=== PATIENT | male | born 1955 | race Caucasian/White ===

== ENCOUNTER → 2018-07-22 | Outpatient (CLI) | payer BC ==
[~2018-07-22] MED LIST: ATOR20TA PO; GADOBUTROL 10 MMOL/10 ML VIAL IV ONE; INTE30SY IM; LISI-334 PO
--- NOTE | 2018-07-22 10:38 | KCIC ---
MRI Brain with and without contrast History: Multiple sclerosis, bilateral extremity numbness and burning sensation, skin numbness Technique: Multiplanar, multi sequential pre and postcontrast MR imaging was performed of the brain. Comparison: None Findings: There is no evidence of recent infarct or cytotoxic edema. Ventricular size is within normal limits. There is mild fairly generalized supratentorial atrophy.There is no significant midline shift, intraaxial mass effect, or focal abnormal extra-axial fluid collection. There is overall minimal T2 and FLAIR hyperintense signal abnormality of the supratentorial periventricular white matter bilaterally with some foci which have a perpendicular orientation relative to the lateral ventricles. There are also some scattered foci in the deep white matter, which are mostly unchanged other than a new focus of the right parasagittal frontal deep and subcortical white matter about 0.7 cm in size image 21 series 7. Foci are not associated with enhancement. There is small focus of more focal volume loss of the right parietal lobe which may be site of previous biopsy. There is also small focus of volume loss and gliosis of the right basal ganglia to involve caudate head, likely sequela of old lacunar infarct. There is preservation of the major intracranial flow-voids at the skull base. The cerebellar tonsils are normal in location. There is no significant abnormality of the pineal gland or pituitary gland. There is focus of signal abnormality of the anterior left maxillary sinus about 1.7 cm which may be complex mucous retention cyst or polyp. There is patchy [id number] left and mild right ethmoid air cell mucosal thickening, also mild circumferential left frontal sinus mucosal thickening. There is also very minimal right maxillary sinus mucosal thickening. There is mild patchy fluid of the left mastoid air cells. There is nonspecific heterogeneity of the marrow of the nonexpanded clivus. Impression: 1. There is scattered overall mild T2 and FLAIR hyperintense abnormality of the supratentorial parenchyma bilaterally which may be seen with provided history of multiple sclerosis, no abnormal intracranial enhancement. There is a new focus of nonenhancing signal abnormality of the right parasagittal frontal white matter. 2. There is mild generalized supratentorial atrophy. 3. There is paranasal sinus mucosal thickening as stated greatest of the left ethmoid air cells. There is complex mucous retention cyst or polyp of the anterior left maxillary sinus. Electronically signed by: Preston Short MD (07/22/2018 10:35 AM) [id number]
== END | disposition home or self-care (01) ==
LOC: KCIC MRI 08:48
PROVIDERS: ATTEND Psychiatry & Neurology Neurology with Special Qualifications in Child Neurology
DX: G31.89 Other specified degenerative diseases of nervous system (principal); J34.89 Other specified disorders of nose and nasal sinuses; R90.82 White matter disease, unspecified; G35 Multiple sclerosis
CPT/HCPCS: 70553; A9585